=== PATIENT | female | born 1990 | race Caucasian/White ===

== ENCOUNTER → 2017-06-12 08:02 | Outpatient (CLI) | payer OTHER, SELFPAY ==
--- NOTE | 2017-06-12 08:06 | US_ITS ---
STUDY: ABDOMINAL ULTRASOUND - RIGHT UPPER QUADRANT REASON FOR VISIT: Female, 26 years old. Right upper quadrant pain. TECHNIQUE: Ultrasound evaluation of the right upper quadrant was performed with real-time and static welch-scale imaging. TECHNICAL QUALITY: Adequate. COMPARISON: None. FINDINGS: Liver: The liver measures 13.9 cm. There is increased echogenicity consistent with a mild degree of fatty infiltration. The bile ducts are within normal limits. There is hepatic color flow. The direction of portal flow is hepatopetal. There is no demonstrated mass lesion. Gallbladder: Normal distended gallbladder. The gallbladder wall is slightly thickened and measures 3.8 mm. There is a negative sonographic Garcia's sign. There is no pericholecystic fluid. There are multiple echogenic structures within the gallbladder, consistent with multiple gallstones. Common Bile Duct (C.B.D.): The common bile duct measures 5.9 mm. Pancreas: Normal size of the head, body of the pancreas. The tail portion is obscured due to overlying bowel gas. There is normal echogenicity of the pancreas. There is no demonstrated pancreatic mass or cyst. Right Kidney: Normal size of the right kidney. The right kidney measures 11.1 cm x 4.4 cm x 4.0 cm. Normal renal cortex. The right cortex measures 1.2 cm. There is no demonstrated renal mass or cyst. There is no right hydronephrosis. US/Gallbladder IMPRESSION: Mild degree of fatty infiltration of the liver. Multiple gallstones. Thickened gallbladder wall. Electronically Signed: Juan Francisco Mims MD at 9:43 EDT Tel [phone], Service support ,
== END ==
PROVIDERS: Family Provider Internal Medicine; PCP Internal Medicine; Visit Provider Nurse Practitioner Gerontology
DX: R10.9 Unspecified abdominal pain (principal)
CPT/HCPCS: 76705

== ENCOUNTER 2017-06-21 06:16 | Day surgery (SDC) | payer OTHER, SELFPAY ==
[2017-06-21] VITALS (7 sets, daily range): BP systolic 117–144; BP diastolic 71–88; PULSE 65–98; RESP 14–18; TEMP 36.4–37.1; O2SAT 96–98; BMI 30.5
--- NOTE | 2017-06-21 06:23 | EKG12_ITS ---
Test Reason : PREOP Blood Pressure : / mmHG Vent. Rate : 089 BPM Atrial Rate : 089 BPM P-R Int : 128 ms QRS Dur : 080 ms QT Int : 376 ms P-R-T Axes : 046 020 -04 degrees QTc Int : 457 ms Normal sinus rhythm Normal ECG When compared with ECG of 12-DEC-2016 15:13, Nonspecific T wave abnormality no longer evident in Anterolateral leads Confirmed by BLANQUITA LOVE, LYNNE ([id number]), medical transcription editor DOUG SABA ([id number]) on 06/24/2017 2:07:53 PM Referred By: Austin Ariza Confirmed By:LYNNE JUARES MD
[2017-06-21 06:36] LABS: Internal QC Validated? YES +Cl - CLEAR BKGD; Pregnancy, Urine Negative Negative
[2017-06-21 07:06] LABS: Hematocrit 38.5 % (37-47); Hemoglobin 12.6 g/dl (12.0-15.0); Mean Corp Hgb Conc 32.7 g/gl (32-36); Mean Corpuscular Hgb 28.6 pg (27.0-32.0); Mean Corpuscular Volume 87.3 fL (81-99); Mean Platelet Vol. 10.2 fl (6.2-12.0); Platelet Count 280 K/mm3 (150-450); RBC Distribution Width CV 13.8 % (11.6-14.6); RBC Distribution Width SD 44.1 fl (35.1-43.9); Red Blood Count 4.41 M/mm3 (4.2-5.4); White Blood Count 7.2 K/mm3 (4.4-11.0)
[2017-06-21 07:10] LABS: Scan Indicated on CBC? Y/N NO
[2017-06-21 07:19] LABS: Anion Gap 10 (5-15); BUN 17 mg/dL (7-18); BUN/Creat Ratio 40.5 RATIO (10-20); Calcium,Total 8.3 mg/dL (8.5-10.1); Chloride 107 mmol/L (98-107); Creatinine, Serum 0.42 mg/dL (0.55-1.02); EST Glomerular Filtration Rate 190 mL/min (>60); Est Glom Filt Rate - Afr Amer 230 mL/min (>60); Estimated Creatinine Clearance 164.96 ml/min; Glucose 79 mg/dL (74-106); Potassium 3.5 mmol/L (3.5-5.1); Sodium Level 141 mmol/L (136-145)
--- NOTE | 2017-06-21 08:30 | GALL_PTH ---
PATIENT: YVONNE MIN LOC: [facility] [place] U#:[id number] AGE/SX: 26/F ROOM: RE06/21/[address]: Dr. Austin Ariza MD : 1990 BED: DIS: 06/21/2017 SPEC #: [id number] RECD: 06/21/17 11:12 STATUS: DECLAN CATHY #: [id number] TONIA: 06/21/17 08:[address]: Austin Ariza DEPT: SURGICAL PATHOLOGY RECD BY: João Gallo ENTERED: 06/21/17 11:29 SP TYPE: DIPTI DAVISON DR: Dr. Thi Paiz DO Tissues: Gallbladder, NOS Procedures: Surgery Specimen Level III HEADER OPERATION: Laparoscopic cholecystomy PRE-OP DIAGNOSIS: Calculus of gallbladder with acute chronic cholecystitis without obstruction TISSUE SUBMITTED: Gallbladder MICROSCOPIC DIAGNOSIS Gallbladder: Chronic cholecystitis, cholelithiasis and focal cholesterolosis. SJ:saeid 06/24/17 MICROSCOPIC DESCRIPTION Slides are reviewed. GROSS DESCRIPTION Received is one container labeled with the patient's name and designated gallbladder. The specimen consists of a gallbladder measuring 7 cm in length and 2 cm in diameter. The external surface is pink-telles, smooth and glistening for the most part. Focally it is granular, hemorrhagic and contains cautery artifact. The gallbladder contains thick, yellowish-telles mucoid bile and multiple stones embedded in the bile, greenish mulberry type measuring in aggregate 3 x 2 x 1 cm and 0.2 to 0.4 cm in greatest dimension. A few of the stones are also present at the cystic duct. The gallbladder wall measures up to 0.2 cm in thickness. Barbering Instructor sections from the gallbladder and the cystic duct are submitted in one cassette. / SJ:rg 06/21/17 TC:3 CPT: 98552
[2017-06-21] MEDS: Cefazolin 2 GM in 0.9% Normal Saline 100 ML IV (09:21)
--- NOTE | 2017-06-21 09:34 | DCINST_ITS ---
Discharge Diet: Light diet - advance as tolerated Discharge Activity: May Not Drive - for 2-3 days or while taking narcotic pain medications., - - Do not drive, work heavy equipment or sign legal documents for 24 hours. May shower in (days): 1 - with the bandage in place. Additional Activity Instructions:: Pain medication may cause nausea. You should typically eat light foods as you take your pain medications. Pain medication may also cause constipation. If this is a problem for you, please discuss with your doctor. Call your doctor if your incision/area has: Continuous Slow Oozing, Sudden Increased Bleeding, Increased Pain/ Swelling, Increased Redness, Foul Smelling Discharge Call your doctor if you observe: Fever of 101 or Higher Suture Line Care: Avoid Pulling/Pushing, Avoid Pinching/Bending Additional Dressing/Incision Instructions:: Leave operative bandaids on for 2 days. When you remove dressing, leave Steri-Strips on until your follow-up appointment, or until the Steri-Strips fall off on their own. Allergies/Adverse Reactions: Allergies clarithromycin [From Biaxin] Allergy (Severe, Verified 06/19/17 10:40) Anaphylaxis venom-honey bee [bee venom (honey bee)] Allergy (Severe, Verified 06/19/17 10:40 ) Anaphylaxis Medications to take at Discharge Vit No.130/Iron/FA [ Vitamins] 1 ea PO DAILY 06/10/16 Cetirizine HCl [Zyrtec] 10 mg PO DAILY PRN 12/12/16 DiphenhydrAMINE [Benadryl] 25 mg PO TID PRN PRN 12/27/16 Fluticasone 0.05% [Flonase Nasal [place]] 2 spray NASAL DAILY PRN 12/27/16 albuterol sulfate HFA 90 mcg/actuation aerosol inhaler 1 puff INHALATION .as needed PRN g 06/17/17 Oxycodone HCl/Acetaminophen [Percocet 5/325] 1 - 2 tab PO Q4H PRN PRN 4 Days # 30 tab 06/21/17 The following prescriptions were given: Oxycodone HCl/Acetaminophen [Percocet 5/325] 1 - 2 tab PO Q4H PRN PRN 4 Days # 30 tab PRN Reason: Pain Primary Care Physician: Thi Paiz DO [Primary Care Provider] - Please Follow Up With: Austin Ariza MD - Please call [phone] to schedule an appointment. When: 7 days after your surgery.
--- NOTE | 2017-06-21 09:36 | OP.PCM_ITS ---
Problem List (1) Calculus of gallbladder with acute on chronic cholecystitis without obstruction Status: Acute Report of Operation Date of Procedure: 06/21/17 Pre-Operative Diagnosis: k80.12 acute on chronic cholecystitis with cholelithiasis without obstruction Post-Operative Diagnosis: Same Surgery/Procedure Performed:: [id number] laparoscopic cholecystectomy Type of Anesthesia:: General Anesthesiologist: Donn Spangler Description of Procedure: Patient was brought into the operating room. Placed in the supine position. Under excellent endotracheal intubation the abdomen was sterilely prepped and draped in usual fashion. Local was injected supraumbilically. Curvilinear incision was made. Dissection was carried to the fascia. Fascia was grasped with a [place]. Varies needle was placed inside the abdomen. Abdomen was insufflated to 15 torr. A 10/12 trocar was placed without difficulty. Patient is placed in the head up and rotated to the left position. A subxiphoid #5 trocar was placed, inferior to this another #5 trocar was placed, and laterally a #5 trocar was placed. All of these under direct visualization without injury to underlying structures. Fundus of the gallbladder was grasped retracted in a cephalad direction. I dissected out the cystic duct. Placed hemoclips proximally and distally on the duct and ligated the duct. Cystic artery was identified. I placed hemoclips proximally distally and ligated the artery. I deliver the gallbladder from the gallbladder bed with use of electrocautery. I had excellent hemostasis. Placed a specimen specimen bag and delivered through the umbilical port. I reinflated the abdomen. Good hemostasis was noted on the liver bed. I remove the trochars under direct visualization. Good hemostasis was noted. I closed the fascia the umbilical defect with a figure-of -eight stitch of #1 Nurolon. Skin incisions were closed with subcuticular stitches of 4-0 Monocryl. Steri-Strips are applied sterile dressings were applied and the patient tolerated the procedure well. - Admit VTE Documentation VTE Present on Admission: No VTE Mechan Device Prophylaxis: SCD's VTE Pharm Prophylaxis ordered?: No Reason prophylaxis not ordered:: Treatment Not Indicated
[2017-06-21] MEDS: Bupivacaine 0.25% 30 ML Vial (10:10)
[2017-06-21] MEDS: oxyCODONE 5 MG Tablet 10 MG PO (11:27)
== END 2017-06-21 12:22 | disposition home or self-care (01) ==
LOC: SDC 06:16 → AC 06:38
PROVIDERS: Anesthesiology; Family Provider Internal Medicine; PCP Internal Medicine; Visit Provider Surgery
PROC: (CPT 47562; principal; 2017-06-21 08:10)
DX: K80.12 Calculus of gallbladder with acute and chronic cholecystitis without obstruction (principal); J45.909 Unspecified asthma, uncomplicated; K21.9 Gastro-esophageal reflux disease without esophagitis; Z86.718 Personal history of other venous thrombosis and embolism
CPT/HCPCS: 47562; 80048; 81025; 85027; 88304; 93005; J7120; J2405

== ENCOUNTER → 2017-10-24 16:17 | Outpatient (CLI) | payer OTHER, SELFPAY ==
--- NOTE | 2017-10-24 16:20 | RAD_ITS ---
STUDY: X-RAY - LUMBAR SPINE REASON FOR EXAM: Female, 27 years old. Fall downstairs TECHNIQUE: 3 view(s) of the lumbar spine were obtained. COMPARISON: None FINDINGS: Normal lumbar lordosis. There is a mild lumbar levoscoliosis. There is a normal alignment of the vertebrae. Normal vertebral bodies and endplates. There is moderately severe narrowing of the L4-5 and L5-S1 disc spaces. There is no demonstrated fracture. The soft tissue structures are unremarkable. RAD/Lumbar Spine 2 or 3 Views IMPRESSION: Moderately severe narrowing of the L4-5 and L5-S1 disc spaces. There is no evidence of fracture or spondylolisthesis. There is a mild lumbar levoscoliosis. Electronically Signed: Messi Ramirez MD at 17:39 EDT , Service support ,
== END ==
PROVIDERS: Visit Provider Physician Assistant
DX: M54.5 Low back pain (principal)
CPT/HCPCS: 72100

== ENCOUNTER 2018-04-03 18:15 | Emergency (ER) | payer OTHER, SELFPAY ==
[2018-04-03 18:17] VITALS: BP 129/79; PULSE 98; RESP 16; TEMP 36.7; O2SAT 95; BMI 28.3
--- NOTE | 2018-04-03 19:10 | ED.DCSUM_ITS ---
- ER Visit Summary Date of Service: 04/03/18 Chief Complaint: Back pain History of Present Illness: The patient is a 27 F with a history of back pain. She reports recent surgery for removal of endometriomas, 1 of which was pressed against her sciatic nerve. Patient did report improvement in her back pain while she was off work, but has returned back to work over the past couple of days and is noticing increasing back pain. She feels that she has increased right-sided spasm tonight. She has occasional numbness into her thigh. Physical Examination: Vital signs unremarkable. Patient is lying in bed no acute distress. Head neck examination is normal. Heart is regular rate and rhythm. Lung sounds are clear. Abdomen is soft and nontender. Back examination reveals tenderness in the right low lumbar paraspinal muscles as well as over the right sciatic notch. She has good strength and sensation the lower extremities. Strong distal pulses are noted. Test Results: [] Emergency Department Course and Treatment: Patient's prior x-rays are reviewed and do reveal disc space narrowing at L4-5, L5-S1. At this time patient be given Naprosyn, Flexeril, and prednisone. She will follow with her primary care physician she may require physical therapy. There is no indication for imaging studies at this time. Treatment Plan: [] Disposition: Discharge Impression: Acute on chronic back pain with sciatica This note was generated with [employer] dictation software. It may contain incorrect words, spelling, and punctuation that were not noted in review of the chart prior to signing ED Disposition - Plan for ED Patient: Chief Complaint: Back Referrals: Korina Krishnamurthy MD [Primary Care Provider] -
--- NOTE | 2018-04-03 19:11 | ED.DEP ---
ED Disposition - Plan for ED Patient: Disposition: Home or Assisted Living Chief Complaint: Back Instructions: ED Sciatica, ED Neck Back Pain General Prescriptions: Naproxen [Naprosyn] 500 mg PO BID PRN PRN #20 tablet PRN Reason: Pain Prednisone 10 mg PO UD #33 tablet Cyclobenzaprine [Flexeril] 10 mg PO TID PRN #20 tablet PRN Reason: Muscle Spasm Referrals: Korina Krishnamurthy MD [Primary Care Provider] - 1 Week
[2018-04-03] MEDS: predniSONE 20 MG Tablet 60 MG PO (19:18)
[2018-04-03] MEDS: Naproxen 500 MG Tablet PO (19:18)
[2018-04-03 19:20] VITALS: RESP 16
== END 2018-04-03 19:20 | disposition home or self-care (01) ==
PROVIDERS: Emergency Provider Emergency Medicine; Family Provider Family Medicine; PCP Family Medicine
DX: G89.29 Other chronic pain (principal); M54.30 Sciatica, unspecified side
CPT/HCPCS: 99283

== ENCOUNTER 2018-05-21 13:16 | Emergency (ER) | payer OTHER, SELFPAY ==
[2018-05-21 13:16] VITALS: BP 128/71; PULSE 117; RESP 18; TEMP 36.9; O2SAT 96; BMI 30.8
--- NOTE | 2018-05-21 13:39 | CT_ITS ---
STUDY: CT ABDOMEN AND PELVIS WITHOUT CONTRAST REASON FOR EXAM: Female, 27 years old. Right lower quadrant pain. RADIATION DOSAGE (If Supplied By Facility): CTDIvol = ( 15.59 ) mGy, DLP = ( 902.86 ) mGycm TECHNIQUE: Transaxial images were obtained from the dome of the diaphragm to the symphysis pubis without oral contrast, and without intravenous contrast. Sagittal and coronal images were reconstructed. Individualized dose optimization techniques were used for this CT. COMPARISON: Comparison is made with prior study dated July 31, 2011. FINDINGS: The visualized lung bases are unremarkable. The visualized portions of the heart are within normal limits. Normal liver. The patient is status post cholecystectomy. Normal spleen. Normal pancreas. Normal bilateral adrenal glands. Normal right kidney. Normal left kidney. Normal visualized stomach. Normal small intestine. Normal colon. The appendix is visualized and appears normal. Normal abdominal aorta. Normal inferior vena cava. There is borderline retroperitoneal lymphadenopathy with enlarged nodes no greater than 10mm in the short axis diameter. Normal urinary bladder. There is a 3.8 cm x 3.1 cm cyst in the right adnexa. Follicles are seen in the left ovary. There is a small umbilical hernia containing fat. Small bilateral benign-appearing axillary lymph nodes. The space narrowing and disc degeneration at the L5-S1 level. CT/Abdomen/Pelvis W IV Cont ONLY IMPRESSION: There is a 3.8 cm x 3.1 cm cyst in the right adnexa. Follicles are seen in the left ovary. Electronically Signed: Juan Francisco Mims, at 15:39 EST , Service support ,
[2018-05-21] MEDS: fentaNYL 100 MCG/2 ML Ampul 50 MCG IV (14:04)
[2018-05-21] MEDS: Ondansetron 4 MG/2 ML Vial IV (14:04)
[2018-05-21 14:12] LABS: Absolute Neutrophil Count 5.5 X10^3/uL (2.0-7.7); Basophil# 0.03 X10^3/uL; Basophil% 0.4 % (0-1); Eosinophil# 0.17 X10^3/uL; Hematocrit 38.8 % (37-47); Hemoglobin 12.7 g/dl (12.0-15.0); Lymphocyte % 26.5 % (19-41); Mean Corp Hgb Conc 32.7 g/gl (32-36); Mean Corpuscular Hgb 29.5 pg (27.0-32.0); Mean Platelet Vol. 10.9 fl (6.2-12.0); Monocyte# 0.41 X10^3/uL; Monocyte% 4.9 % (0-10); Neutrophil # 5.49 X10^3/uL (2.7-7.7); Neutrophil % 66.1 % (47-70); Platelet Count 280 K/mm3 (150-450); RBC Distribution Width CV 13.2 % (11.6-14.6); RBC Distribution Width SD 43.8 fl (35.1-43.9); Red Blood Count 4.31 M/mm3 (4.2-5.4); White Blood Count 8.3 K/mm3 (4.4-11.0)
[2018-05-21 14:14] LABS: POSITIVE COUNT NO; POSITIVE DIFFERENTIAL NO; POSITIVE MORPHOLOGY NO
[2018-05-21 14:17] LABS: ALB/GLOB Ratio 1.1 RATIO (0.9-2.4); AST(SGOT) 17 U/L (15-37); Alanine Aminotransfer ALT/SGPT 23 U/L (13-56); Albumin, Serum 3.6 g/dL (3.2-5.0); Alkaline Phosphatase 90 U/L (45-117); Anion Gap 6 (5-15); BUN 17 mg/dL (7-18); BUN/Creat Ratio 32.3 RATIO (10-20); Calcium,Total 8.2 mg/dL (8.5-10.1); Chloride 108 mmol/L (98-107); Creatinine, Serum 0.53 mg/dL (0.55-1.02); EST Glomerular Filtration Rate 145 mL/min (>60); Est Glom Filt Rate - Afr Amer 176 mL/min (>60); Estimated Creatinine Clearance 129.56 ml/min; Globulin 3.4 g/dL (2.2-4.2); Glucose 102 mg/dL (74-106); Lipase 132 U/L (73-393); Potassium 3.8 mmol/L (3.5-5.1); Sodium Level 140 mmol/L (136-145)
[2018-05-21 14:49] LABS: Bacteria 0 SEEN /hpf (None Seen); Mucous, Urine 0 SEEN /hpf (<or=2+); White Blood Cells 0 SEEN /hpf (0-5)
[2018-05-21 14:52] LABS: Color, Urine Yellow (Yellow); Glucose, Dipstick Normal (Normal); Ketone-Dipstick Negative (Negative); Leukocyte Esterase-Dipstick 25 /ul (Negative); Nitrite-Dipstick Negative (Negative); Occult Blood-Urine 250 /ul (Negative); Protein-Dipstick 15 mg/dl (Negative); Urine Bilirubin Dipstick Negative (Negative); Urine Clarity Sl. Cloudy (Clear); Urine Urobilinogen Normal (Normal)
[2018-05-21 14:56] LABS: Pregnancy, Serum, hCG Quali. NEGATIVE Negative (0-9 Nonpreg)
[2018-05-21 14:58] LABS: Red Blood Cells-Urine > 100 SEEN /hpf (0-5); Squamous Epithelial Cells - UA 0-5 SEEN /hpf (5-10)
[2018-05-21 15:27] VITALS: BP 114/61; PULSE 83; RESP 12; O2SAT 97
--- NOTE | 2018-05-21 15:58 | ED.VISSUMM ---
- ER Visit Summary Date of Service: 05/21/18 Chief Complaint: Right side abdominal pain History of Present Illness: The patient is a 27 F with right side abdominal pain that started yesterday. Worse with movement. Associated with fever and nausea. Patient has a history of endometrial tumors and ovarian cyst. She had an ultrasound done yesterday that showed no cyst. She does have some nausea and diarrhea. Subjective fevers. She is on her menstrual period. Physical Examination: Afebrile and vital signs unremarkable except for heart rate of 117. The patient appears mildly uncomfortable but not toxic or in distress. Right lower quadrant is tender to palpation. No guarding or rebound. The remainder of her exam is unremarkable. Test Results: CBC normal. CMP and lipase unremarkable. Urinalysis showed blood but no sign of infection. test was negative. CT abdomen and pelvis showed a 3.8 x 3.1 cm right adnexal cyst. Emergency Department Course and Treatment: Patient received Zofran and fentanyl while awaiting results. Her workup showed an adnexal cyst on the right. No other significant findings. Risks of the cyst such as torsion were discussed. Return for new or worsening issues. She will follow-up with her FINANCIAL SERVICES DIRECTOR. Treatment Plan: As above Disposition: Discharge Impression: 1. Right adnexal cyst This note was generated with [employer] dictation software. It may contain incorrect words, spelling, and punctuation that were not noted in review of the chart prior to signing ED Disposition - Plan for ED Patient: Referrals: Korina Krishnamurthy MD [Primary Care Provider] -
--- NOTE | 2018-05-21 16:00 | ED.DEP ---
ED Disposition - Plan for ED Patient: Instructions: ED Cyst Ovarian Additional Instructions: follow up with your obgyn
== END 2018-05-21 16:13 | disposition home or self-care (01) ==
LOC: ED 14:13
PROVIDERS: Emergency Provider Emergency Medicine; Family Provider Family Medicine; PCP Family Medicine
DX: L72.8 Other follicular cysts of the skin and subcutaneous tissue (principal); R19.7 Diarrhea, unspecified; R11.0 Nausea
CPT/HCPCS: 74177; 80053; 81001; 83690; 84703; 85025; 96374; 96375; 99283; Q9967; A4216; J2405

== ENCOUNTER 2018-11-09 09:29 | Emergency (ER) | payer OTHER, SELFPAY ==
[2018-11-08 09:48] VITALS: BMI 30.8
[2018-11-09 09:31] VITALS: BP 146/80; PULSE 104; RESP 17; TEMP 36.9; O2SAT 95; BMI 34.1
--- NOTE | 2018-11-09 10:22 | EKG12_ITS ---
Test Reason : PALPITATIONS Blood Pressure : / mmHG Vent. Rate : 102 BPM Atrial Rate : 102 BPM P-R Int : 130 ms QRS Dur : 084 ms QT Int : 376 ms P-R-T Axes : 060 020 -04 degrees QTc Int : 490 ms Sinus tachycardia Otherwise normal ECG Confirmed by BLANQUITA LOVE, LYNNE ([id number]), social media editor WAI DUMAS ([id number]) on 11/11/2018 1:27:59 PM Referred By: Confirmed By:LYNNE JUARES MD
--- NOTE | 2018-11-09 10:40 | RAD_ITS ---
STUDY: X-RAY CHEST REASON FOR EXAM: Female, 28 years old. Persistent cough, tachycardia TECHNIQUE: PA and lateral views of the chest. COMPARISON: February 27, 2017 chest x-ray FINDINGS: The lungs are clear and expanded. There is no demonstrated pleural abnormality. Normal size heart. Normal mediastinum and pratibha. Normal visualized pulmonary arteries. Normal visualized aortic arch and descending thoracic aorta. Normal visualized thoracic spine. Normal visualized ribs, clavicles, and shoulders. There is no demonstrated abnormality of the visualized soft tissue structures of the upper abdomen. RAD/Chest PA and Lateral IMPRESSION: Normal x-ray examination of the chest. Electronically Signed: Malia Baker MD at 10:52 EDT Tel , Service support ,
[2018-11-09 10:47] LABS: Absolute Lymphocyte Count 2.56 X10^3/uL (0.83-4.51); Absolute Neutrophil Count 8.3 X10^3/uL (2.0-7.7); Basophil# 0.04 X10^3/uL; Basophil% 0.3 % (0-1); Eosinophil# 0.09 X10^3/uL; Eosinophils% 0.8 % (0-5); Hematocrit 40.7 % (37-47); Hemoglobin 13.4 g/dL (12.0-15.0); Lymphocyte # 2.56 X10^3/ul (4.0); Mean Corp Hgb Conc 32.9 g/dL (32-36); Mean Corpuscular Volume 91.1 fL (81-99); Mean Platelet Vol. 10.5 fl (6.2-12.0); Monocyte# 0.49 X10^3/uL; Monocyte% 4.2 % (0-10); NRBC Flagged by Analyzer 0 % (0-5); Neutrophil # 8.34 X10^3/uL (2.7-7.7); Neutrophil % 71.8 % (47-70); Platelet Count 305 K/mm3 (150-450); RBC Distribution Width CV 12.6 % (11.6-14.6); RBC Distribution Width SD 41.7 fl (35.1-43.9); Red Blood Count 4.47 M/mm3 (4.2-5.4); White Blood Count 11.6 K/mm3 (4.4-11.0)
[2018-11-09 11:11] LABS: Anion Gap 6 (5-15); BUN 18 mg/dL (7-18); BUN/Creat Ratio 27.5 RATIO (10-20); Calcium,Total 8.7 mg/dL (8.5-10.1); Chloride 109 mmol/L (98-107); Creatinine, Serum 0.65 mg/dL (0.55-1.02); EST Glomerular Filtration Rate 113 mL/min (>60); Est Glom Filt Rate - Afr Amer 137 mL/min (>60); Estimated Creatinine Clearance 104.69 ml/min; Glucose 95 mg/dL (74-106); Magnesium 2.1 mg/dL (1.6-2.6); Potassium 3.9 mmol/L (3.5-5.1); Sodium Level 142 mmol/L (136-145); Thyroid Stim Hormone (TSH) 0.78 uIU/mL (0.358-3.74)
--- NOTE | 2018-11-09 11:51 | ED.VISSUMM ---
- ER Visit Summary Date of Service: 11/09/18 Chief Complaint: Heart racing History of Present Illness: The patient is a 28 F who states for the past 3 weeks she has had a cough. [facility] was placed on prednisone and Augmentin. She states that in the past Biaxin and azithromycin have given her fast heart rate. She states she ended up having to see cardiology while she was due to tachycardia. She tells me that she feels her heart beating fast she feels dizzy her chest is sore from coughing she has bilateral ear pain and a continued sore throat. She has a history of asthma. She has not used her inhaler because she does not want to raise her heart rate more. Physical Examination: Afebrile vital signs are stable heart rate 104 Gen: Well-nourished well-developed Head: Normocephalic atraumatic Eyes: Perrl EOMI ENT: TMs clear no rhinorrhea moist mucous membranes Neck: Supple no lymphadenopathy no JVD nontender CVS: Regular rate tachycardic rhythm no murmurs normal S1-S2 Respiratory: No distress clear to auscultation bilaterally chest nontender Abdomen: Soft nontender nondistended normal bowel sounds no masses Back: Nontender Extremity: Nontender no edema Skin: Normal color no rash Neuro: alert orientated ?3 CN II-XII intact normal strength sensation reflexes gait cerebellar Psych: Anxious Test Results: EKG showed a sinus tachycardia. Basic labs are otherwise negative. White count 11.6. Normal potassium magnesium. TSH was normal. Chest x-ray negative Emergency Department Course and Treatment: Patient was allowed to rest. Heart rate on its own come down to 82. At this point patient should continue her respiratory medications follow-up if not improving. Impression: 1. Palpitations 2. Viral respiratory illness This note was generated with [employer] dictation software. It may contain incorrect words, spelling, and punctuation that were not noted in review of the chart prior to signing ED Disposition - Plan for ED Patient: Disposition: Home or Assisted Living Instructions: Palpitations Referrals: Korina Krishnamurthy MD [Primary Care Provider] - As Needed
[2018-11-09 12:03] VITALS: BP 117/76; PULSE 95; RESP 16; O2SAT 95
--- NOTE | 2018-11-09 12:04 | ED.RN ---
IV DC'D, CATHETER INTACT, SMALL GAUZE DRESSING PLACED. DISCHARGE INSTRUCTIONS GIVEN TO AND REVIEWED WITH PATIENT, PATIENT DENIES QUESTIONS OR CONCERNS AND VOICES UNDERSTANDING OF DISCHARGE INSTRUCTIONS. PT AMBULATES OUT OF ROOM WITHOUT DIFFICULTY.
== END 2018-11-09 12:05 | disposition home or self-care (01) ==
PROVIDERS: Emergency Provider Emergency Medicine; Family Provider Family Medicine; PCP Family Medicine
DX: R00.2 Palpitations (principal); J06.9 Acute upper respiratory infection, unspecified; J45.909 Unspecified asthma, uncomplicated
CPT/HCPCS: 71046; 80048; 83735; 84443; 85025; 93005; 99284; A4216

== ENCOUNTER 2018-11-22 10:05 | Emergency (ER) | payer OTHER, SELFPAY ==
[2018-11-22 10:06] VITALS: BP 132/77; PULSE 88; RESP 18; TEMP 36.2; O2SAT 99; BMI 33.6
--- NOTE | 2018-11-22 10:24 | CT_ITS ---
STUDY: CT ABDOMEN AND PELVIS WITH CONTRAST REASON FOR EXAM: Female, 28 years old. Right lower quadrant pain x2 days. Prior IVETTE/BSO and cholecystectomy. RADIATION DOSAGE (If Supplied By Facility): CTDIvol = ( 15.64 ) mGy, DLP = ( 1136.72 ) mGycm TECHNIQUE: Transaxial images were obtained from the dome of the diaphragm to the symphysis pubis with oral contrast. 100 IV/Oral Isovue 370 was administered. Sagittal and coronal images were reconstructed. Individualized dose optimization techniques were used for this CT. COMPARISON: 05/21/2018. FINDINGS: Right posterior pleural thickening more than left posterior pleural thickening are new findings. The lung bases are normal. The visualized portions of the heart are within normal limits. Normal liver. Postsurgical absence of the gallbladder. Normal spleen. Normal pancreas. Normal bilateral adrenal glands. Normal right kidney. Normal left kidney. Mild intramural thickening of the gastric antrum. Normal small intestine. Normal colon. The appendix is not visualized. Normal abdominal aorta. Normal inferior vena cava. Normal retroperitoneum. Normal urinary bladder. Clearing of right ovarian cyst. Small left ovarian cyst measuring 1.65 x 1.59 cm. Normal retroverted uterus. Normal abdominal wall. Moderately pronounced L5-S1 disc space with degenerative vacuum phenomenon. Moderately pronounced L4-5 disc space posteriorly bulging disc. No acute osseous abnormality. CT/Abdomen/Pelvis WITH Contrast IMPRESSION: 1. Mild intramural thickening of the gastric antrum is worrisome for mild gastritis. This is a new finding when compared to 05/21/2018. Endoscopy will help. 2. Nonvisualization of the appendix. 3. Focal areas of right posterior pleural thickening and left posterior pleural thickening. These are new when compared to 05/21/2018. Etiology is unknown. 4. Interval clearing of right ovarian cyst and new small left ovarian cyst measuring 1.65 x 1.59 cm. 5. L4-L5 and L5-S1 degenerative disc space height narrowing and small L4-L5 posterior bulging disc were present previously. 6. No other additional findings or changes when compared to 05/21/2018. Electronically Signed: Wei Williamson MD at 12:40 EDT , Service support ,
[2018-11-22] MEDS: Ondansetron 4 MG/2 ML Vial IV (10:33)
[2018-11-22] MEDS: 0.9% Normal Saline 1,000 ML 1000 ML IV (10:33)
[2018-11-22 10:42] LABS: Absolute Neutrophil Count 5.7 X10^3/uL (2.0-7.7); Basophil# 0.05 X10^3/uL; Basophil% 0.6 % (0-1); Eosinophil# 0.37 X10^3/uL; Eosinophils% 4.1 % (0-5); Hematocrit 41.6 % (37-47); Hemoglobin 13.6 g/dL (12.0-15.0); Lymphocyte % 26.6 % (19-41); Mean Corp Hgb Conc 32.7 g/dL (32-36); Mean Corpuscular Hgb 29.4 pg (27.0-32.0); Mean Corpuscular Volume 89.8 fL (81-99); Mean Platelet Vol. 10.3 fl (6.2-12.0); Monocyte# 0.46 X10^3/uL; Monocyte% 5.1 % (0-10); NRBC Flagged by Analyzer 0 % (0-5); Neutrophil % 63.2 % (47-70); Platelet Count 275 K/mm3 (150-450); RBC Distribution Width CV 12.5 % (11.6-14.6); RBC Distribution Width SD 41.2 fl (35.1-43.9); Red Blood Count 4.63 M/mm3 (4.2-5.4)
[2018-11-22 10:55] LABS: ALB/GLOB Ratio 1.1 RATIO (0.9-2.4); AST(SGOT) 16 U/L (15-37); Alanine Aminotransfer ALT/SGPT 27 U/L (13-56); Albumin, Serum 3.6 g/dL (3.2-5.0); Alkaline Phosphatase 93 U/L (45-117); Anion Gap 4 (5-15); BUN 13 mg/dL (7-18); BUN/Creat Ratio 20.5 RATIO (10-20); Calcium,Total 8.5 mg/dL (8.5-10.1); Chloride 109 mmol/L (98-107); Creatinine, Serum 0.63 mg/dL (0.55-1.02); EST Glomerular Filtration Rate 117 mL/min (>60); Est Glom Filt Rate - Afr Amer 142 mL/min (>60); Estimated Creatinine Clearance 108.01 ml/min; Globulin 3.3 g/dL (2.2-4.2); Glucose 97 mg/dL (74-106); Potassium 3.9 mmol/L (3.5-5.1); Protein, Total 6.9 g/dL (6.4-8.2); Sodium Level 141 mmol/L (136-145)
[2018-11-22 12:46] VITALS: BP 131/74; PULSE 62; RESP 15; O2SAT 98
--- NOTE | 2018-11-22 13:38 | ED.VISSUMM ---
- ER Visit Summary Date of Service: 11/22/18 Chief Complaint: Abdominal pain History of Present Illness: The patient is a [address] Krishnamurthy. She reports that she has abdominal pain that began 2 days ago. Began in the periumbilical area and is never for the right lower quadrant. She was seen at another emergency department 2 days ago and had blood work, CT without contrast, and UA that were unremarkable. She was discharged with Bentyl and Zofran. She reports she is getting no relief from this. Patient reports that her pain is an aching pain Zeta 10 at worst and 6 out of 10 currently. Is worse when with movement or pressure. She reports is been nausea and vomited 4-5 times. No blood or emesis. She has had diarrhea which seems to be improving. She reports that she is only had a small amount of diarrhea this morning. No blood in her stools or black tarry stools. Physical Examination: Vitals: Stable. Afebrile. General: Well-nourished and well-developed. Head: Normocephalic atraumatic. Neck: Supple, no lymphadenopathy. No JVD. Nontender. Cardiovascular: Regular rate and rhythm. No murmurs. Respiratory: No respiratory distress. Clear to auscultation bilaterally. Abdominal: Soft, mild diffuse tenderness palpation with moderate right lower quadrant tenderness, nondistended, normal bowel sounds. No guarding, rebound, or peritoneal signs. Back: Nontender. Extremities: Nontender, no edema. Skin: Normal color, no rash. Neurologic: Alert and oriented ?3. Cranial nerves II through XII are intact. Normal strength and sensation. Psych: Normal affect. Test Results: CBC is normal. Chem-7 shows a chloride 109. LFTs are normal. Urinalysis was not repeated. Clinical Impression(s) from Imaging Studies Abdomen/Pelvis CT 11/22/18 10:24 IMPRESSION: 1. Mild intramural thickening of the gastric antrum is worrisome for mild gastritis. This is a new finding when compared to 05/21/2018. Endoscopy will help. 2. Nonvisualization of the appendix. 3. Focal areas of right posterior pleural thickening and left posterior pleural thickening. These are new when compared to 05/21/2018. Etiology is unknown. 4. Interval clearing of right ovarian cyst and new small left ovarian cyst measuring 1.65 x 1.59 cm. 5. L4-L5 and L5-S1 degenerative disc space height narrowing and small L4-L5 posterior bulging disc were present previously. 6. No other additional findings or changes when compared to 05/21/2018. Electronically Signed: Wei Williamson MD at 12:40 EDT , Service support , ADDENDUM: 11/22/18 1328 Emergency Department Course and Treatment: Patient refused pain medication she was treated with a dose of Zofran and is resting more comfortably. When the CT return I discussed this with the patient. She assures me that she had a IVETTE/BSO in July of this year by Dr. Velazquez. I called and discussed this with the radiologist who reviewed the films and does report that he was mistaken and she is status post hysterectomy and oophorectomy. The area on the left that he thought was an ovarian cyst he believes is a lymphocele. I just discussed with him specifically the possibility of appendicitis. He reports that he has been unable to see her appendix. However she cannot has no inflammatory changes in the right lower quadrant. Treatment Plan: Patient does not want anything more for pain or nausea at home. She will be discharged with instructions to follow-up with her local company refrigerated truck driver, Dr. Calle, and 9 days as previously scheduled. She does understand that she may require a colonoscopy. She is also instructed to follow-up with her certified pesticide applicator for further evaluation of her pain. Return to the emergency department for any worsening symptoms. Disposition: To home in improved and stable condition. Impression: 1. Abdominal pain, uncertain cause. This note was generated with [employer] software. It may contain incorrect words, spelling, and punctuation that were not noted in review of the chart prior to signing ED Disposition - Plan for ED Patient: Disposition: Home or Assisted Living Instructions: ABDOMINAL PAIN, Unknown Cause, (Female) Referrals: Korina Krishnamurthy MD [Primary Care Provider] - 2 Days
[2018-11-22 13:51] VITALS: BP 130/57; PULSE 71; RESP 16; O2SAT 96
== END 2018-11-22 13:52 | disposition home or self-care (01) ==
LOC: ED 10:42
PROVIDERS: Emergency Provider Emergency Medicine; Family Provider Family Medicine; PCP Family Medicine
DX: R10.9 Unspecified abdominal pain (principal); R19.7 Diarrhea, unspecified; K29.70 Gastritis, unspecified, without bleeding; M51.37 Other intervertebral disc degeneration, lumbosacral region; N83.202 Unspecified ovarian cyst, left side; N83.201 Unspecified ovarian cyst, right side; Z90.710 Acquired absence of both cervix and uterus; Z90.49 Acquired absence of other specified parts of digestive tract; R51 Headache; R11.2 Nausea with vomiting, unspecified; J45.909 Unspecified asthma, uncomplicated
CPT/HCPCS: 74177; 80053; 85025; 96361; 96374; 99283; J7030; Q9967; J2405

== ENCOUNTER 2019-03-27 21:18 | Emergency (ER) | payer OTHER, SELFPAY ==
[2018-12-12 10:48] VITALS: BMI 33.6
[2019-03-27 21:19] VITALS: BP 144/86; PULSE 88; RESP 14; TEMP 36.7; O2SAT 99; BMI 34.7
--- NOTE | 2019-03-27 21:23 | RAD_ITS ---
STUDY: X-RAY - RIGHT RADIUS AND ULNA REASON FOR EXAM: Female, 28 years old. FALL, DISTAL FOREARM PAIN TECHNIQUE: 2 view(s) of the forearm. COMPARISON: None. FINDINGS: There is no demonstrated soft tissue swelling. Normal visualized radius. Normal visualized ulna. RAD/Forearm 2 Views IMPRESSION: Normal x-ray examination of the radius and ulna. Electronically Signed: Messi Ramirez MD at 21:46 EST , Service support ,
[2019-03-27 23:28] VITALS: RESP 16
--- NOTE | 2019-03-27 23:32 | ED.VISSUMM ---
- ER Visit Summary Date of Service: 03/27/19 Chief Complaint: Right forearm pain History of Present Illness: The patient is a 28 F who presents with a right forearm injury that occurred today. Patient states she fell onto a metal Irena tree stand. Patient states her pain is over the distal right forearm and wrist area. Patient states her pain is aching and throbbing. Patient states her pain is worse with supination. Patient does admit to some tingling into her fingers. Patient denies any head injury or loss of consciousness. Patient denies any other injuries. Physical Examination: Vital signs are stable. Patient is afebrile. Patient is in no acute distress. Musculoskeletal exam reveals tenderness over the right distal forearm. There is some mild edema and erythema on the volar aspect of the right distal forearm and wrist area. There is no bony crepitance or step-off. Range of motion was limited in all motions of the right wrist secondary to pain. Sensation was intact to light touch in all digits. Capillary refill was less than 2 seconds in all digits. Test Results: X-rays of the right forearm were obtained. There is no acute fracture. These were interpreted by the radiologist and myself. Emergency Department Course and Treatment: Patient was given a Velcro wrist splint. Patient was instructed to ice and elevate the right wrist. Patient was instructed to take Tylenol or ibuprofen as needed for pain. Patient was instructed to follow-up with her primary care physician in 5 to 7 days. Patient understood and was agreeable with the plan. All questions were answered. Disposition: Discharge home Impression: Right forearm contusion This note was generated with [employer] dictation software. It may contain incorrect words, spelling, and punctuation that were not noted in review of the chart prior to signing ED Disposition - Plan for ED Patient: Disposition: Home or Assisted Living Diagnosis: Contusion of right forearm, initial encounter Instructions: CONTUSION, Upper Extremity Referrals: Korina Krishnamurthy MD [Primary Care Provider] - 5-7 Days
[2019-03-27 23:41] VITALS: RESP 16
== END 2019-03-27 23:41 | disposition home or self-care (01) ==
PROVIDERS: Emergency Provider Emergency Medicine; Family Provider Family Medicine; PCP Family Medicine
DX: S50.11XA Contusion of right forearm, initial encounter (principal); W01.0XXA Fall on same level from slipping, tripping and stumbling without subsequent striking against object, initial encounter; Y93.89 Activity, other specified; Y92.9 Unspecified place or not applicable; Y99.9 Unspecified external cause status
CPT/HCPCS: 73090; 99283

== ENCOUNTER 2019-04-18 11:44 | Emergency (ER) | payer OTHER, SELFPAY ==
[2019-04-18 11:46] VITALS: BP 164/78; PULSE 99; RESP 16; TEMP 35.7; O2SAT 99; BMI 33.6
--- NOTE | 2019-04-18 12:01 | US_ITS ---
STUDY: ULTRASOUND TRANSVAGINAL CLINICAL: Female, 28 years old. PELVIC PAIN - SPOTTING WITH H/O HYSTERECTOMY TECHNIQUE: Transvaginal COMPARISON: None. FINDINGS: Uterus is not seen (history of hysterectomy). Right ovary is not seen. Left ovary is not seen. There is no free fluid in the pelvis. No solid mass identified. US/Transvaginal Non- IMPRESSION: 1. No pelvic free fluid, fluid collection or solid mass seen. 2. Nonvisualized uterus and bilateral ovaries. Electronically Signed: Yogesh Baca MD ([place]) at 13:13 EST , Service support ,
--- NOTE | 2019-04-18 12:03 | ED.DCSUM_ITS ---
History of Present Illness Chief Complaint: Abd Pain Informant: Patient Onset: Days Current Severity: Moderate Maximum Severity: Severe Narrative: Patient presents with acute on chronic pelvic pain. She is a history of s ignificant endometriosis. She had a complete hysterectomy in July 2018. She was seen here in October with pelvic pain and was diagnosed either with a cyst or pelvic lymph node that was enlarged. Patient states she continues to have intermittent chronic pelvic pain. Yesterday she noted increased pain and had pink mucousy discharge from her vagina. She states she feels a lot of vaginal pressure and slight pain just to the left of midline. She has not had fever or chills. She denies dysuria. She has not had any bleeding vaginally today. Patient had surgery with Dr. Velazquez in [place]. She states she attempted to contact him however he had moved to [place] and is only seeing reproductive health issues. When she called the office that Dr. Velazquez had worked out they are also only doing reproductive medicine and patient was advised she would need to see a regular DIAMOND WHEEL EDGER. - Past Medical History (1) Asthma Status: Chronic (2) GERD (gastroesophageal reflux disease) Status: Chronic (3) Endometriosis Status: Chronic (4) Hx of cholecystectomy Status: Chronic (5) History of hysterectomy Status: Chronic Past Medical History - Allergies and Home Meds Allergies/Adverse Reactions: Allergies clarithromycin [From Biaxin] Allergy (Severe, Verified 04/18/19 11:45) Anaphylaxis venom-honey bee [bee venom (honey bee)] Allergy (Severe, Verified 04/18/19 11:45) Anaphylaxis morphine Adverse Reaction (Verified 04/18/19 11:45) Itching oxycodone Adverse Reaction (Verified 04/18/19 11:45) Itching Primary Care Physician: Korina Krishnamurthy MD [Primary Care Provider] - Prior records reviewed: Yes Smoking Status: Never smoker Review of Systems General: Denies: Chills, Fever Eyes: Denies: Visual changes - bilaterally ENT: Denies: Bilateral ear pain Cardiovascular: Denies: Chest pain Respiratory: Denies: Dyspnea, Cough Gastrointestinal: Reports: Abdominal pain. Denies: Nausea, Vomiting, Diarrhea Genitourinary: Denies: Dysuria Musculoskeletal: Denies: Extremity Pain Skin: Denies: Rash Neurological: Denies: Headache Allergy: Denies: Uticaria Physical Exam Vital Signs/Narrative: Vital Signs Temp Pulse Resp BP Pulse Ox 04/18/19 11:46 96.2 F L 99 16 164/78 H 99 Inital Vital Signs reviewed: Yes General: Well nourished, Well developed Head: Normocephalic ENT: Moist mucous membranes Neck: Supple Cardiovascular: Regular rate, Regular rhythm Respiratory: No distress, CTA bilaterally Abdomen: Soft, Nontender, Hypoactive bowel sounds Skin: Normal color Neurological: Alert, Oriented x3 Psychological: Normal affect Diagnostic/Tx/Re-eval Impressions Transvaginal US 04/18/19 12:01 IMPRESSION: 1. No pelvic free fluid, fluid collection or solid mass seen. 2. Nonvisualized uterus and bilateral ovaries. Electronically Signed: Yogesh Baca MD ([place]) at 13:13 EST , Service support , Abdomen/Pelvis CT 04/18/19 13:15 IMPRESSION: 1. No acute inflammatory process or fluid collection. 2. Hysterectomy, cholecystectomy. Electronically Signed: Yogesh Baca MD ([place]) at 15:16 EST , Service support , 04/18/19 12:01 Transvaginal Non- [US] Stat 04/18/19 13:15 Abdomen/Pelvis WITH Contrast [CT] Stat Laboratory Results 04/18/19 04/18/19 04/18/19 12:11 12:11 12:25 WBC 7.0 RBC 4.57 Hgb 13.7 Hct 41.2 MCV 90.2 MCH 30.0 MCHC 33.3 RDW Std Deviation 41.7 RDW Coeff of Héctor 12.7 Plt Count 298 MPV 10.3 Immature Gran % (Auto) 0.300 Neut % (Auto) 58.0 Lymph % (Auto) 31.5 [place] % (Auto) 7.3 Eos % (Auto) 2.2 Baso % (Auto) 0.7 Absolute Neuts (auto) 4.0 Absolute Lymphs (auto) 2.19 Nucleated RBC % 0 Sodium 141 Potassium 3.6 Chloride 108 H Carbon Dioxide 28.0 Anion Gap 5 BUN 14 Creatinine 0.73 Estim Creat Clear Calc 93.22 Est GFR (MDRD) Af Amer 119 Est GFR (MDRD) Non-Af 99 BUN/Creatinine Ratio 19.1 Glucose 110 H Calcium 8.9 Urine Color Yellow Urine Clarity Sl. Cloudy Urine pH 7.0 Ur Specific [place] 1.010 Urine Protein Negative Urine Glucose (UA) Normal Urine Ketones Negative Urine Occult Blood Negative Urine Nitrite Negative Urine Bilirubin Negative Urine Urobilinogen Normal Ur Leukocyte Esterase 500 H Urine RBC 0 SEEN Urine WBC 25-50 SEEN Ur Squamous Epith Cells 0-5 SEEN Urine Bacteria 1+ Urine Mucus 0 SEEN - Medical Decision Making Patient was initially given morphine and Zofran for pain. Vaginal ultrasound did not reveal any acute findings for her symptoms. She does have evidence of UTI. Because patient did have large cyst in her pelvis recently CT scan was also pursued. Area of prior cystic structure is now measuring only 1 cm. Repeat evaluation patient resting comfortably. She now does admit to having dysuria and pressure when she urinates. She believes this is all now secondary to UTI. She will be treated with Bactrim and as well as Pyridium. She will be referred to Dr. Zac Yarbrough, on-call for no doc WARRANTY COORDINATOR for follow-up. ED Disposition - Plan for ED Patient: Disposition: Home or Assisted Living Diagnosis: Cystitis Instructions: Bladder Infection, Female (Adult) Prescriptions: Smz/Tmp Ds [Bactrim Ds] 1 tab PO BID #6 tab Transmission Status: Pending to [facility]/pharmacy #[id number] Phenazopyridine HCl [Pyridium] 200 mg PO BID PRN PRN #10 tab PRN Reason: Pain Transmission Status: Pending to [facility]/pharmacy #[id number] Referrals: Korina Krishnamurthy MD [Primary Care Provider] - Maggie Richardson MD [STAFF PHYSICIAN] - As Needed
[2019-04-18] MEDS: Ondansetron 4 MG/2 ML Vial IV (12:14)
[2019-04-18] MEDS: DiphenhydrAMINE 50 MG/ML Syringe 12.5 MG IV (12:14)
[2019-04-18] MEDS: Morphine 4 MG/ML Syringe IV (12:15)
[2019-04-18] MEDS: 0.9% Normal Saline 1,000 ML 150 ML IV (12:15)
[2019-04-18 12:18] LABS: Absolute Lymphocyte Count 2.19 X10^3/uL (0.83-4.51); Basophil# 0.05 X10^3/uL; Basophil% 0.7 % (0-1); Eosinophil# 0.15 X10^3/uL; Eosinophils% 2.2 % (0-5); Hematocrit 41.2 % (37-47); Hemoglobin 13.7 g/dL (12.0-15.0); Lymphocyte # 2.19 X10^3/ul (4.0); Lymphocyte % 31.5 % (19-41); Mean Corp Hgb Conc 33.3 g/dL (32-36); Mean Corpuscular Volume 90.2 fL (81-99); Mean Platelet Vol. 10.3 fl (6.2-12.0); Monocyte# 0.51 X10^3/uL; Monocyte% 7.3 % (0-10); NRBC Flagged by Analyzer 0 % (0-5); Neutrophil # 4.03 X10^3/uL (2.7-7.7); Platelet Count 298 K/mm3 (150-450); RBC Distribution Width CV 12.7 % (11.6-14.6); RBC Distribution Width SD 41.7 fl (35.1-43.9); Red Blood Count 4.57 M/mm3 (4.2-5.4)
[2019-04-18 12:30] LABS: Mucous, Urine 0 SEEN /hpf (<or=2+); Red Blood Cells-Urine 0 SEEN /hpf (0-5)
[2019-04-18 12:31] LABS: Color, Urine Yellow (Yellow); Glucose, Dipstick Normal (Normal); Ketone-Dipstick Negative (Negative); Leukocyte Esterase-Dipstick 500 /ul (Negative); Nitrite-Dipstick Negative (Negative); Occult Blood-Urine Negative /ul (Negative); Protein-Dipstick Negative (Negative); Urine Bilirubin Dipstick Negative (Negative); Urine Clarity Sl. Cloudy (Clear); Urine Urobilinogen Normal (Normal)
[2019-04-18 12:37] LABS: Anion Gap 5 (5-15); BUN 14 mg/dL (7-18); BUN/Creat Ratio 19.1 RATIO (10-20); Calcium,Total 8.9 mg/dL (8.5-10.1); Chloride 108 mmol/L (98-107); Creatinine, Serum 0.73 mg/dL (0.55-1.02); EST Glomerular Filtration Rate 99 mL/min (>60); Est Glom Filt Rate - Afr Amer 119 mL/min (>60); Estimated Creatinine Clearance 93.22 ml/min; Glucose 110 mg/dL (74-106); Potassium 3.6 mmol/L (3.5-5.1); Sodium Level 141 mmol/L (136-145)
[2019-04-18 12:39] LABS: Bacteria 1+ /hpf (None Seen); Squamous Epithelial Cells - UA 0-5 SEEN /hpf (5-10); White Blood Cells 25-50 SEEN /hpf (0-5)
--- NOTE | 2019-04-18 13:15 | CT_ITS ---
STUDY: CT ABDOMEN AND PELVIS WITH CONTRAST REASON FOR EXAM: Female, 28 years old. VAGINAL BLEEDING, ABD PAIN -- HYST 07/2018,GB RADIATION DOSAGE (If Supplied By Facility): CTDIvol = ( 12.4 ) mGy, DLP = ( 1126.05 ) mGycm TECHNIQUE: Transaxial images were obtained from the dome of the diaphragm to the symphysis pubis with oral contrast. Oral and amp; IV Gastrografin and amp; 100mL Isovue-300 was administered. Sagittal and coronal images were reconstructed. Individualized dose optimization techniques were used for this CT. COMPARISON: None. FINDINGS: The visualized lung bases are unremarkable. The visualized portions of the heart are within normal limits. Normal liver. Gallbladder is surgically absent. Normal spleen. Normal pancreas. Normal bilateral adrenal glands. Normal right kidney. Normal left kidney. Normal visualized stomach. Normal small intestine. Normal colon. The appendix is visualized and appears normal. Normal abdominal aorta. Normal inferior vena cava. Normal retroperitoneum. Normal urinary bladder. There is absence of the uterus consistent with a prior hysterectomy. There is a very small cystic structure of the left hemipelvis measures 1 cm, smaller since the prior study. There is a small umbilical hernia containing fat. There are diffuse degenerative changes of the visualized lumbar spine. CT/Abdomen/Pelvis WITH Contrast IMPRESSION: 1. No acute inflammatory process or fluid collection. 2. Hysterectomy, cholecystectomy. Electronically Signed: Yogesh Baca MD ([place]) at 15:16 EST , Service support ,
[2019-04-18 14:04] VITALS: BP 140/73; PULSE 78; RESP 16; O2SAT 98
[2019-04-18] MEDS: Phenazopyridine 95 MG Tablet 190 MG PO (15:51)
[2019-04-18] MEDS: Smz/Tmp Ds Tablet 1 TABLET PO (15:51)
[2019-04-18 15:56] VITALS: BP 122/81; PULSE 78; RESP 14; O2SAT 100
--- NOTE | 2019-04-18 15:58 | ED.RN ---
PT GIVEN WRITTEN AND VERBAL DISCHARGE INSTRUCTIONS. EDUCATED NOT TO DRIVE FOR 6 HOURS AFTER HAVING MORPHINE. PT VERBALIZES UNDERSTANDING AND DENIES ANY FURTHER QUESTIONS. REPORTS IS COMING TO PICK HER UP.
== END 2019-04-18 16:00 | disposition home or self-care (01) ==
PROVIDERS: Emergency Provider Emergency Medicine; PCP Family Medicine
DX: N30.90 Cystitis, unspecified without hematuria (principal); G89.29 Other chronic pain; J45.909 Unspecified asthma, uncomplicated; K21.9 Gastro-esophageal reflux disease without esophagitis; Z88.5 Allergy status to narcotic agent; Z90.710 Acquired absence of both cervix and uterus; Z90.49 Acquired absence of other specified parts of digestive tract; N80.9 Endometriosis, unspecified
CPT/HCPCS: 74177; 76830; 80048; 81001; 85025; 96361; 96374; 96375; 99285; J7030; Q9967; A4216; J2405

== ENCOUNTER 2019-08-16 09:32 | Emergency (ER) | payer OTHER, SELFPAY ==
[2019-08-16 09:32] VITALS: BP 150/81; PULSE 106; RESP 18; TEMP 36.3; O2SAT 95; BMI 35.9
--- NOTE | 2019-08-16 09:49 | ED.DCSUM_ITS ---
History of Present Illness Chief Complaint: Back Informant: Patient Onset: Weeks Context: Gradual Onset Timing: Waxes and wanes Current Severity: Severe Maximum Severity: Severe Narrative: Patient presents secondary to severe back pain. She is a history of back pain. Pain is been worse in the last 3 or 4 weeks. She was seen by her PCP 3 weeks ago. Patient states normally they will do steroids and a muscle relaxer along with some physical therapy. They decided to forego the steroids this last visit and patient was given some Valium as a muscle relaxer. Patient states she had mild improvement for a couple days, but then pain worsened again. She has been alternating Tylenol and Motrin. She is had difficulty getting around her home and sleeping secondary to pain. Pain does not radiate down her leg. She has had no bowel or bladder symptoms. - Past Medical History (1) Lumbar radiculopathy Status: Chronic (2) Asthma Status: Chronic (3) Endometriosis Status: Chronic (4) GERD (gastroesophageal reflux disease) Status: Chronic (5) History of hysterectomy Status: Chronic (6) Hx of cholecystectomy Status: Chronic Past Medical History - Allergies and Home Meds Allergies/Adverse Reactions: Allergies clarithromycin [From Biaxin] Allergy (Severe, Verified 04/18/19 11:45) Anaphylaxis venom-honey bee [bee venom (honey bee)] Allergy (Severe, Verified 04/18/19 11:45) Anaphylaxis morphine Adverse Reaction (Verified 04/18/19 11:45) Itching oxycodone Adverse Reaction (Verified 04/18/19 11:45) Itching Primary Care Physician: Korina Krishnamurthy MD [Primary Care Provider] - Prior records reviewed: Yes Lives: Spouse/ Significant Other Smoking Status: Never smoker Review of Systems General: Denies: Chills, Fever Eyes: Denies: Visual changes - bilaterally ENT: Denies: Bilateral ear pain Cardiovascular: Denies: Chest pain Respiratory: Denies: Dyspnea, Cough Gastrointestinal: Denies: Abdominal pain, Nausea, Vomiting, Diarrhea Genitourinary: Denies: Dysuria Musculoskeletal: Reports: Back pain. Denies: Extremity Pain Skin: Denies: Rash Neurological: Denies: Headache, Weakness, Parasthesia Hematologic: Denies: Easy bruising, Easy bleeding Allergy: Denies: Uticaria Physical Exam Vital Signs/Narrative: Vital Signs Temp Pulse Resp BP Pulse Ox 08/16/19 09:32 97.3 F L 106 H 18 150/81 H 95 Inital Vital Signs reviewed: Yes General: Well nourished, Well developed, - - Patient sitting in bedside chair leaning forward over the bed. Head: Normocephalic ENT: Moist mucous membranes Neck: Supple Cardiovascular: Regular rate, Regular rhythm Respiratory: No distress, CTA bilaterally Abdomen: Soft, Nontender Back: - - Patient has tenderness over the SI joints bilaterally, right greater than left. Minimal low lumbar tenderness. No overlying skin change. Extremities: Nontender Skin: Normal color Neurological: Alert, Oriented x3, Normal Strength, Normal Sensation Psychological: Normal affect Diagnostic/Tx/Re-eval - Medical Decision Making Patient was given [place], Flexeril, and prednisone. On repeat evaluation she is feeling improved. She be given prescriptions for the same and will follow-up with her primary care physician this week as planned. ED Disposition - Plan for ED Patient: Disposition: Home or Assisted Living Diagnosis: Back pain Instructions: ED Neck Back Pain General Prescriptions: Prednisone [Deltasone] 60 mg PO DAILY #15 tab Transmission Status: Pending to [id number] cycloBENZAPRine HCl [Flexeril] 10 mg PO TID PRN #20 tab PRN Reason: Muscle Spasm Transmission Status: Pending to [facility] Hydrocodone Bitart/Apap 5-325 [[place] 5MG-325MG] 1 tablet PO Q6H PRN PRN 3 Days #10 tablet PRN Reason: Pain Transmission Status: Sent to [facility] Referrals: Korina Krishnamurthy MD [Primary Care Provider] - 5-7 Days
[2019-08-16] MEDS: predniSONE 20 MG Tablet 60 MG PO (10:06)
[2019-08-16] MEDS: HYDROcodone Bitartrate/Apap 5/325 Tablet PO (10:06)
[2019-08-16] MEDS: cycloBENZAPRine HCl 10 MG Tablet PO (10:07)
[2019-08-16 11:12] VITALS: BP 115/74; PULSE 81; RESP 16; O2SAT 98
--- NOTE | 2019-08-16 11:13 | ED.RN ---
THIS NURSE REVIEWED D/C INSTRUCTIONS WITH PT. PT VERBALIZED UNDERSTANDING OF INSTRUCTIONS. PT DENIES FURTHER NEEDS OR QUESTIONS AT THIS TIME. TO PICK PT UP AND WILL BE HERE IN APPROX 30 MIN. PT INFORMED SHE IS WELCOME TO WAIT IN THE ROOM.
== END 2019-08-16 11:14 | disposition home or self-care (01) ==
PROVIDERS: Emergency Provider Emergency Medicine; PCP Family Medicine
DX: M54.9 Dorsalgia, unspecified (principal); J45.909 Unspecified asthma, uncomplicated; K21.9 Gastro-esophageal reflux disease without esophagitis; Z88.5 Allergy status to narcotic agent; Z90.710 Acquired absence of both cervix and uterus; Z90.49 Acquired absence of other specified parts of digestive tract
CPT/HCPCS: 99283

== ENCOUNTER → 2020-07-07 16:52 | Outpatient (CLI) | payer OTHER, SELFPAY ==
[2020-07-07 16:25] VITALS: BMI 36.3
--- NOTE | 2020-07-07 16:55 | RAD_ITS ---
STUDY: X-RAY CHEST REASON FOR EXAM: Female, 29 years old. Fever and cough TECHNIQUE: PA and lateral views of the chest. COMPARISON: None. FINDINGS: The lungs are clear and expanded. There is no demonstrated pleural abnormality. Normal size heart. Normal mediastinum and pratibha. Normal visualized pulmonary arteries. Normal visualized aortic arch and descending thoracic aorta. Normal visualized thoracic spine. Normal visualized ribs, clavicles, and shoulders. There is no demonstrated abnormality of the visualized soft tissue structures of the upper abdomen. RAD/Chest PA and Lateral IMPRESSION: Normal x-ray examination of the chest. Electronically Signed: Carlos Oscar MD at 17:07 EDT , Service support ,
== END ==
PROVIDERS: PCP Family Medicine; Referring Provider Physician Assistant; Visit Provider Physician Assistant
DX: R05 Cough (principal)
CPT/HCPCS: 71046